=== PATIENT | female | born 1950 | race Caucasian/White ===

== ENCOUNTER → 2019-02-26 | Outpatient (CLI) | payer MEDICARE, OTHER ==
[~2019-02-26] MED LIST: CELE200C PO; ESTR1TAB3 PO; HYDR12.58 PO; LISI10TA2 PO; VALA1000 PO
--- NOTE | 2019-02-26 15:27 | RAD ---
DATE: 02/26/2019 EXAM: MAMMUrban SÁNCHEZ, BREAST RIGHT HISTORY: Palpable abnormality reportedly felt by the patient's referring physician a few weeks ago at the right upper-outer breast. COMPARISON: 01/10/2017 mammographic exam This study was interpreted with the benefit of Computerized Aided Detection (CAD). Breast Density: DENSE The breast parenchyma is dense, which could reduce the sensitivity of mammography. Breast parenchyma level density D. FINDINGS: Right upper outer quadrant surgical clips are present in the calcifications are present at the site and are probably similar upon correlation with the previous exam. Direct comparison is somewhat limited as spot magnification was performed on the current exam and prior spot magnification images are not available at this time. No mass identified. No suspicious distortion. Ultrasound imaging of the right upper-outer quadrant was performed. No mass or cyst identified. Heterogeneity of the breast parenchyma is present. IMPRESSION: No suspicious imaging findings. Clinical follow-up is recommended in determining need for biopsy. Otherwise annual follow-up recommended. BI-RADS CATEGORY: 2 BENIGN FINDING(S) RECOMMENDED FOLLOW-UP: CLIN FOLLOW UP IMAGING CLINICALLY INDICATED PQRS compliance statement: Patient information was entered into a reminder system with a target due date in one year based on clinical assessment for the next mammogram. Mammography is a sensitive method for finding small breast cancers, but it does not detect them all and is not a substitute for careful clinical examination. A negative mammogram does not negate a clinically suspicious finding and should not result in delay in biopsying a clinically suspicious abnormality. "Our facility is accredited by the [employer] Mammography Program."
== END | disposition home or self-care (01) ==
LOC: MAMMO 08:48
PROVIDERS: ATTEND Nurse Practitioner Family
DX: N63.10 Unspecified lump in the right breast, unspecified quadrant (principal)
CPT/HCPCS: 76641; 77066; G0279; 77062